=== PATIENT | female | born 1985 | race Caucasian/White ===

== ENCOUNTER 2025-03-04 23:01 | Emergency (ER) | payer OTHER ==
[~2025-03-04] VITALS: Ht 172.7 cm; Wt 63.5 kg
[2025-03-05 00:44] LABS: BASOPHILS % (AUTO) 0.1 % (0.0-2.0); EOSINOPHILS # (AUTO) 0.2 K/uL (0.0-0.7); EOSINOPHILS % (AUTO) 2.4 % (0.0-6.0); HEMATOCRIT 43 % (33-45); HEMOGLOBIN 14.4 g/dL (11.5-14.8); LYMPHOCYTES # (AUTO) 1.4 K/uL (0.8-4.8); LYMPHOCYTES % (AUTO) 16.9 % (20.0-44.0); MEAN CORPUSCULAR HEMOGLOBIN 30 PG (26.0-33.0); MEAN CORPUSCULAR HGB CONC 33 g/dl (31.0-36.0); MEAN CORPUSCULAR VOLUME 90 fL (82-100); MONOCYTES # (AUTO) 0.6 K/uL (0.1-1.30); MONOCYTES % (AUTO) 7.7 % (2.0-12.0); NEUTROPHILS # (AUTO) 6.1 K/uL (1.8-8.9); NEUTROPHILS % (AUTO) 72.9 % (43.0-81.0); PLATELET COUNT (AUTO) 227 K/uL (150-450); RED CELL DISTRIBUTION WIDTH 13.2 % (11.5-15.0); WHITE BLOOD COUNT (AUTO) 8.4 K/uL (4.3-11.0)
[2025-03-05] MEDS ORDERED: KETOROLAC TROMETHAMINE INJ 30 MG/ML VIAL ONE (00:47)
[2025-03-05] MEDS: IV NS 0.9% 1,000 ML BAG IV ONE (00:51)
[2025-03-05] MEDS: KETOROLAC TROMETHAMINE 15 MG/ML VIAL IV ONE (00:51)
[2025-03-05 01:02] LABS: APPEARANCE,URINE CLEAR (CLEAR); BILIRUBIN,URINE NEGATIVE (NEGATIVE); BLOOD, URINE TRACE-INTA Ery/uL (NEGATIVE); COLOR,URINE YELLOW (YELLOW); KETONES,URINE NEGATIVE (NEGATIVE); LEUKOCYTE ESTERASE ,URINE NEGATIVE (NEGATIVE); NITRITE, URINE NEGATIVE (NEGATIVE); PH,URINE 5.5 (5.0-8.0); PROTEIN,URINE NEGATIVE (NEGATIVE); UGLUCOSE NEGATIVE (NEGATIVE); UROBILINOGEN,URINE 0.2 EU/dL (0.2)
[2025-03-05 01:03] LABS: ADD URINE CULTURE NO; BACTERIA,URINE Rare /HPF (None Seen); PREGNANCY TEST URINE QUAL NEGATIVE (NEGATIVE); SQUAMOUS EPITHELIAL CELL,UR Few /HPF (None Seen); WBC,URINE 0-2 /HPF (0-3)
[2025-03-05 01:06] LABS: CALCIUM, SERUM 9.2 mg/dL (8.5-10.1); CREATININE 0.9 mg/dL (0.6-1.3); POTASSIUM 3.4 mmol/L (3.5-5.1)
[2025-03-05 01:13] LABS: ALBUMIN 3.9 g/dL (3.4-5.0); BILIRUBIN,DIRECT 0.1 mg/dL (0.0-0.2); BILIRUBIN,TOTAL 0.5 mg/dL (0.2-1.0); TOTAL PROTEIN, SERUM 7.8 g/dL (6.4-8.2)
[2025-03-05] MEDS ORDERED: IV NS 0.9% 250 ML IV ONE (01:16)
[2025-03-05] MEDS ORDERED: IOHEXOL-300 100 ML VIAL IV ONE (01:16)
[2025-03-05] MEDS ORDERED: CT SWABBABLE VALVE TRANS SET 1 EA INFUS.SET MC ONE (01:16)
[2025-03-05] MEDS ORDERED: DIPH1TAB PO (03:30)
[2025-03-05] MEDS ORDERED: IBUP-1490 PO (03:30)
[2025-03-05] MEDS ORDERED: ACETAMINOPHEN ES 500 MG TABLET ONE (03:40)
[2025-03-05] MEDS: ACETAMINOPHEN ES 500 MG TABLET PO ONE (03:47)
[2025-03-05 03:48] VITALS: BP 124/76; TEMP 98.2; O2SAT 98
== END 2025-03-05 03:48 | disposition home or self-care (01) ==
LOC: ER 23:09
DX: R10.84 Generalized abdominal pain (principal); R14.0 Abdominal distension (gaseous); R19.7 Diarrhea, unspecified; R10.2 Pelvic and perineal pain
CPT/HCPCS: 99285; 96374; 96361; 74177; 85025; 80048; 83690; 80076; 84703; 81001; 36415; 84702; J1885; J7030; J7050; Q9967